=== PATIENT | female | born 1955 | race Caucasian/White ===

== ENCOUNTER 2022-06-12 07:39 | Day surgery (SDC) | payer OTHER ==
[~2022-06-12] VITALS: Ht 154.9 cm; Wt 33.1 kg
[2022-06-12] MEDS ORDERED: MULVITA (08:10)
[2022-06-12] MEDS ORDERED: Vitamin C100 M1 (08:10)
[2022-06-12] MEDS ORDERED: LORA10ER (08:10)
[2022-06-12] MEDS ORDERED: SENNA LAXATIVE8.6 MG (08:10)
== END 2022-06-12 10:15 | disposition home or self-care (01) ==
LOC: ORSCSDS 07:39
PROVIDERS: Student in an Organized Health Care Education/Training Program
PROC: 0DBK8ZX Excision of Ascending Colon, Via Natural or Artificial Opening Endoscopic, Diagnostic (ICD-10-PCS; principal; 2022-06-12 09:15)
PROC: 0DBL8ZX Excision of Transverse Colon, Via Natural or Artificial Opening Endoscopic, Diagnostic (ICD-10-PCS; principal; 2022-06-12 09:15)
PROC: 0DBH8ZX Excision of Cecum, Via Natural or Artificial Opening Endoscopic, Diagnostic (ICD-10-PCS; principal; 2022-06-12 09:15)
DX: Z12.11 Encounter for screening for malignant neoplasm of colon (principal); Z86.010 Personal history of colon polyps; Z80.0 Family history of malignant neoplasm of digestive organs; D12.0 Benign neoplasm of cecum; D12.2 Benign neoplasm of ascending colon; D12.3 Benign neoplasm of transverse colon; K57.30 Diverticulosis of large intestine without perforation or abscess without bleeding; K64.8 Other hemorrhoids; K62.89 Other specified diseases of anus and rectum; E66.9 Obesity, unspecified; Z68.35 Body mass index [BMI] 35.0-35.9, adult
CPT/HCPCS: 88305; J2704; J3010; J7120